=== PATIENT | female | born 1985 | race Caucasian/White ===

== ENCOUNTER 2018-11-02 17:56 | Emergency (ER) | payer OTHER ==
[~2018-11-02] VITALS: Ht 162.6 cm; Wt 82.1 kg
[2018-11-02 18:04] VITALS: BP 136/74
== END 2018-11-02 19:50 | disposition home or self-care (01) ==
LOC: ED 19:45
DX: S60.222A Contusion of left hand, initial encounter (principal); Z87.891 Personal history of nicotine dependence; W22.8XXA Striking against or struck by other objects, initial encounter; Y93.89 Activity, other specified; Y92.69 Other specified industrial and construction area as the place of occurrence of the external cause; Y99.0 Civilian activity done for income or pay
CPT/HCPCS: 99283

== ENCOUNTER 2019-10-04 21:19 | Emergency (ER) | payer MEDICAID, OTHER ==
[~2019-10-04] VITALS: Ht 160 cm; Wt 83.7 kg
[2019-10-04] MEDS ORDERED: DIPHENHYDRAMINE 25 MG CAPSULE ONE (21:56)
[2019-10-04] MEDS ORDERED: FAMOTIDINE 20 MG TABLET ONE (21:56)
[2019-10-04] MEDS ORDERED: ALBUTEROL/IPRATROPIUM 2.5MG/0.5MG, 3 ML NPPB ONE (22:00)
[2019-10-04] MEDS ORDERED: DIPHENHYDRAMINE 25 MG CAPSULE PO ONE (22:00)
[2019-10-04] MEDS ORDERED: FAMOTIDINE 20 MG TABLET PO ONE (22:00)
[2019-10-04] MEDS ORDERED: ALBUTEROL/IPRATROPIUM 2.5MG/0.5MG, 3 ML ONE ×2 (22:03→22:27)
[2019-10-04 22:48] VITALS: BP 114/82
== END 2019-10-04 22:50 | disposition home or self-care (01) ==
LOC: ED 21:51
DX: L50.9 Urticaria, unspecified (principal); J98.01 Acute bronchospasm
CPT/HCPCS: 94640; 99284; J7512; J7620; Q0163

== ENCOUNTER 2020-04-25 20:13 | Emergency (ER) | payer MEDICAID ==
[~2020-04-25] VITALS: Ht 160 cm; Wt 87.1 kg
[2020-04-25] MEDS ORDERED: ALBUTEROL/IPRATROPIUM 2.5MG/0.5MG, 3 ML ONE ×2 (20:38→20:55)
[2020-04-25] MEDS ORDERED: ALBUTEROL SULFATE 2.5 MG/3 ML ONE (20:39)
--- NOTE | 2020-04-25 20:39 | NUR ---
THIS IS A 34 YO FEMALE COMING IN FOR ASTHMA EXACERBATION AFTER BEING EXPOSED TO FIREWORK SMOKE. PATIENT HAS HX OF ASTHMA, STATES "I DON'T KNOW WHERE MY INHALER IS, I WAS SEARCHING FOR IT BUT COULDN'T FIND IT SO I CAME IN HERE". RESPIRATIONS ARE SLIGHTLY TACHYPNIC AT 24/MIN, MILD EFFORT NOTED, 98% ON RA, RESPIRATIONS EVEN, MILD EXPIRATORY WHEEZES AUSCULTATED THROUGHOUT. NO OTHER COMPLAINTS AT THIS TIME, MONITORING IN PLACE, VSS, CALL LIGHT IN REACH.
--- NOTE | 2020-04-25 20:59 | NUR ---
BREATHING TX GIVEN BY THIS RN. T IN WITH TRAUMA PATIENT. VERIFIED WITH [employer] SEATER OKAY TO GIVE TX
[2020-04-25] MEDS ORDERED: ALBUTEROL/IPRATROPIUM 2.5MG/0.5MG, 3 ML NPPB ONE (21:00)
--- NOTE | 2020-04-25 21:04 | NUR ---
PATIENT REPORTS GREATER EASE OF BREATHING AFTER BREATHING TREATMENT. LUNG SOUNDS CLEAR THROUGHOUT.
[2020-04-25 22:07] VITALS: BP 102/64
== END 2020-04-25 22:12 | disposition home or self-care (01) ==
LOC: ED 22:00
DX: J45.21 Mild intermittent asthma with (acute) exacerbation (principal); R94.31 Abnormal electrocardiogram [ECG] [EKG]; Z76.0 Encounter for issue of repeat prescription
CPT/HCPCS: 93005; 94640; 99283